=== PATIENT | female | born 1940 | race Caucasian/White ===

== ENCOUNTER → 2016-09-12 | Outpatient (CLI) | payer OTHER ==
--- NOTE | 2016-09-12 12:20 | DI ---
PA /LATERAL CHEST X-RAY, 09/12/2016 11:44 AM : Clinical History: Shortness of breath. Previous Exam: 10/30/2013. There is no acute soft tissue or bony abnormality. Heart size is normal. There is no acute infiltrate or effusion. There is centrilobular emphysema with mild pulmonary arterial hypertension. Mediastinal structures are otherwise normal. There are no pulmonary nodules. Readin. There is no acute infiltrate or effusion. 2. Centrilobular emphysema with mild pulmonary arterial hypertension. 3. There has been no interval change.
== END ==
LOC: MOB RAD 11:45
PROVIDERS: ATTEND Surgery
DX: R06.02 Shortness of breath (principal); R13.10 Dysphagia, unspecified; F17.200 Nicotine dependence, unspecified, uncomplicated
CPT/HCPCS: 71020; 99212; G0463

== ENCOUNTER 2016-10-02 08:23 | Day surgery (SDC) | payer OTHER ==
[~2016-10-02 08:23] MED LIST: LIDOCAINE 2% VISCOUS(20 MG/1 ML) - 15 ML UD CUP PO ONE; LIDOCAINE HCL/PF 2% (20 MG/ML) - 5 ML SYRINGE ONE; MIDAZOLAM 5 MG/1 ML ONE; fentaNYL Inj 100 MCG/2 ML VIAL ONE
[2016-10-02] MEDS ORDERED: LIDOCAINE W/ SODIUM BICARB 0.5 ML SYR ONE (08:30)
[2016-10-02] MEDS ORDERED: Lactated Ringers 1,000 ML PRIMARY IV ONE (08:30)
[2016-10-02 09:00] VITALS: RESP 16
--- NOTE | 2016-10-02 10:55 | GEN.OPNOTE ---
EGD Operative Note Surgery Date: 10/02/16 Preoperative Diagnosis: Dysphasia Postoperative Diagnosis: Gastritis #2 benign esophageal stricture Procedure: Esophagogastroduodenoscopy with balloon dilation. And biopsy Surgeon: Calos Jones MD Anesthesia Provider: Ezequiel Nunes CRNA Anesthesia Type: MAC Indications: Patient's been having difficulty swallowing Findings: Esophagus: [employer] video EGD scope inserted in posterior pharynx. Current recognization of the esophagus. Patient esophagus. Be normal except a benign esophageal stricture at the GE junction. GE Junction : At 30 cm from incisors Fundus : Scope retroflexed itself revealing normal fundus Body : Body was within normal limits Prepyloric : Patient had some hemorrhagic gastritis seen at the prepyloric area. I see taken for CLOtest Small Intestine : First and second portion of duodenum within normal limits. Scope was brought back just above the GE junction. Patient had a balloon dilator place. Progressively blown up to 20 mm A lubricated flexible upper endoscope was inserted and passed through the esophagus and stomach into the duodenum.
[2016-10-02 12:41] VITALS: TEMP 97.6
== END 2016-10-02 11:35 | disposition home or self-care (01) ==
LOC: SDSC 08:23
PROVIDERS: ATTEND Surgery
DX: R06.02 Shortness of breath (principal); R13.10 Dysphagia, unspecified; K29.70 Gastritis, unspecified, without bleeding; K22.2 Esophageal obstruction
CPT/HCPCS: 43249; 87339; J2704; J3010; 43245; J2001; J2250; J7120

== ENCOUNTER → 2016-10-09 | Outpatient (CLI) | payer OTHER | LOC: MMPC 11:11 | PROVIDERS: ATTEND Surgery | DX: R13.10 Dysphagia, unspecified (principal); R19.7 Diarrhea, unspecified; K29.50 Unspecified chronic gastritis without bleeding | CPT/HCPCS: 99212; G0463 ==